=== PATIENT | male | born 1970 | race African-American/Black ===

== ENCOUNTER 2024-07-24 07:31 | Outpatient (CLI) | payer OTHER | END 2024-07-24 07:32 | disposition home or self-care (01) | LOC: BICULT 07:31 | PROVIDERS: ATTEND Nurse Practitioner Family | DX: R14.0 Abdominal distension (gaseous) (principal); K86.89 Other specified diseases of pancreas; K76.0 Fatty (change of) liver, not elsewhere classified | CPT/HCPCS: 76700 ==